=== PATIENT | female | born 1975 | race African-American/Black ===

== ENCOUNTER 2017-02-14 16:54 | Emergency (ER) | payer OTHER ==
[~2017-02-14] VITALS: Ht 162.6 cm; Wt 108.9 kg
--- NOTE | ~2017-02-14 | CR93 ---
[facility]. [facility] A Service of [facility] & [facility] [place] RADIOLOGY TEXT RESULTS PATIENT: SUNDAR GUTIÉRREZ LOCATION: SED : 79 UNIT #: [id number] AGE: [address]: DEVANTE BROWER SEX: F ORDER DR: [id number] [address] [address] [id number] E MR#: [id number] Acc #: [id number] NAME: SUNDAR GUTIÉRREZ : 1975 SEX: F STUDY DATE/TIME: 02/14/2017 17:36 UNIT: SED ROOM: STUDY DESCRIPTION: CR Elbow Min 3 Views Lt Attending Physician: Devante Brower Ordering Physician: Devante Brower Primary Care Physician: Garland Garner M.D. MEDICAL IMAGING REPORT This report is preliminary unless electronic signature is present. EXAM 3 views left elbow. DATE: 02/14/2017 HISTORY Left elbow pain after falling yesterday. FINDINGS AP and lateral examination of the elbow shows satisfactory articulation of the humerus with the proximal radius and ulna. There is no identifiable fracture, dislocation, joint effusion, or radiopaque foreign body in the soft tissues. IMPRESSION Normal elbow. Dictated by... Ness Alanis M.D. THIS IS AN ELECTRONICALLY VERIFIED REPORT Ness Alanis M.D. at 02/15/2017 9:55 AM VANIA/riana TD: 02/14/2017 22:01 JOB #: [id number] MEDICAL IMAGING REPORT Page 1 of 1
--- NOTE | ~2017-02-14 | CR172 ---
[facility] A Service of [facility] RADIOLOGY TEXT RESULTS PATIENT: SUNDAR GUTIÉRREZ LOCATION: SED : [birth year] UNIT #: [id number] AGE: [address]: DEVANTE BROWER SEX: F ORDER DR: [id number] [address] [address] [id number] E MR#: [id number] Acc #: [id number] NAME: SUNDAR GUTIÉRREZ : 1975 SEX: F STUDY DATE/TIME: 02/14/2017 17:36 UNIT: SED ROOM: STUDY DESCRIPTION: CR Knee 3 Views Lt Attending Physician: Devante Brower Ordering Physician: Devante Brower Primary Care Physician: Garland Garenr M.D. MEDICAL IMAGING REPORT This report is preliminary unless electronic signature is present. EXAM Three views left knee. DATE 02/14/2017 HISTORY Medial left knee pain after falling yesterday. COMPARISON None FINDINGS AP and lateral projection of the knee shows smooth articular anatomy without indication of fracture or dislocation at the major weight-bearing surface of the knee. There is no indication of radiopaque foreign body about the knee surface or joint effusion. IMPRESSION Normal 3 views of the left knee. Dictated by... Ness Alanis M.D. THIS IS AN ELECTRONICALLY VERIFIED REPORT Ness Alanis M.D. at 02/15/2017 9:55 AM [facility]/psc TD: 02/14/2017 21:59 JOB #: [id number] [facility] A Service [facility] RADIOLOGY TEXT RESULTS PATIENT: SUNDAR GUTIÉRREZ LOCATION: SED : [birth year] UNIT #: [id number] AGE: [address]: DEVANTE BROWER SEX: F ORDER DR: MEDICAL IMAGING REPORT Page 1 of 1
--- NOTE | ~2017-02-14 | CR281 ---
[facility] A Service [facility] RADIOLOGY TEXT RESULTS PATIENT: SUNDAR GUTIÉRREZ LOCATION: SED : 79 UNIT #: [id number] AGE: [address]: DEVANTE BROWER SEX: F ORDER DR: [id number] [address] [address] [id number] E MR#: [id number] Acc #: [id number] NAME: SUNDAR GUTIÉRREZ : 1975 SEX: F STUDY DATE/TIME: 02/14/2017 17:36 UNIT: SED ROOM: STUDY DESCRIPTION: CR Wrist Min 3 View Lt Attending Physician: Devante Brower Ordering Physician: Devante Brower Primary Care Physician: Garland Garner M.D. MEDICAL IMAGING REPORT This report is preliminary unless electronic signature is present. EXAM 3 views left wrist DATE: 02/14/2017 HISTORY Left wrist pain after falling yesterday. COMPARISON None. FINDINGS Wrist evaluation in multiple projections shows normal mineralization of the bony structures about the wrist and satisfactory articular relationship of the radius and ulna to the proximal carpal row and of the distal carpal segments to the metacarpal bases. There is no indication of fracture or dislocation, and no soft tissue radiopaque foreign body is present. No congenital defects are apparent. IMPRESSION Normal wrist. Dictated by... Ness Alanis M.D. THIS IS AN ELECTRONICALLY VERIFIED REPORT Ness Alanis M.D. at 02/15/2017 9:55 AM VANIA/riana TD: 02/14/2017 21:59 JOB #: [id number] [facility] A Service [facility] RADIOLOGY TEXT RESULTS PATIENT: SUNDAR GUTIÉRREZ LOCATION: SED : [birth year] UNIT #: [id number] AGE: [address]: DEVANTE BROWER SEX: F ORDER DR: MEDICAL IMAGING REPORT Page 1 of 1
[~2017-02-14 16:54] MED LIST: BACTRIM DS TABL1 TA1 PO; BENTYL20 MG PO; DICLOFENAC PO; NO MEDICATIONS; VOLTAREN75 MG PO
== END 2017-02-14 18:36 | disposition home or self-care (01) ==
LOC: SED 16:54
DX: S63.502A Unspecified sprain of left wrist, initial encounter (principal); S80.02XA Contusion of left knee, initial encounter; S50.02XA Contusion of left elbow, initial encounter; F17.210 Nicotine dependence, cigarettes, uncomplicated; Z88.8 Allergy status to other drugs, medicaments and biological substances; Z88.1 Allergy status to other antibiotic agents; Z91.040 Latex allergy status; Z91.041 Radiographic dye allergy status; W01.0XXA Fall on same level from slipping, tripping and stumbling without subsequent striking against object, initial encounter; Y92.511 Restaurant or cafe as the place of occurrence of the external cause
CPT/HCPCS: 29260; 29530; 73080; 73110; 73562; 99283

== ENCOUNTER 2017-03-03 12:47 | Emergency (ER) | payer OTHER ==
[~2017-03-03] VITALS: Ht 162.6 cm; Wt 108.9 kg
[2017-03-03 13:25] LABS: URINE SOURCE CLEAN CATCH
[2017-03-03 13:42] LABS: URINE APPEARANCE CLEAR; URINE BILIRUBIN NEG (NEG); URINE BLOOD TRACE (NEG); URINE COLOR YELLOW; URINE GLUCOSE NEG (NEG); URINE KETONE NEG (NEG); URINE LEUKOCYTE ESTERASE NEG (NEG); URINE NITRATE NEG (NEG); URINE PROTEIN NEG (NEG); URINE SPECIFIC GRAVITY 1.019 (1.003-1.035); URINE UROBILINOGEN 0.2 MG/DL (NEG)
[2017-03-03 13:46] LABS: U HYALINE CASTS AUWI 0-2 /[LPF]; URINE BACTERIA AUWI NEG (NEGATIVE); URINE SQUAMOUS EPITHELIAL CELL NONE SEEN /[HPF]; UWBCS1 AUWI 0-2 (0-5)
[2017-03-03 14:02] LABS: CULTURE INDICATED? NO
[2017-03-06 01:33] LABS: CHLAMYDIA TRACH Not Detected (Not Detected); N GONOR Not Detected (Not Detected)
== END 2017-03-03 15:45 | disposition home or self-care (01) ==
LOC: CED 12:47 → CFTX 12:47
PROVIDERS: Physician Assistant
DX: R30.0 Dysuria (principal); E78.00 Pure hypercholesterolemia, unspecified; F17.200 Nicotine dependence, unspecified, uncomplicated; Z90.710 Acquired absence of both cervix and uterus; Z91.040 Latex allergy status; Z91.041 Radiographic dye allergy status; Z88.8 Allergy status to other drugs, medicaments and biological substances
CPT/HCPCS: 81003; 87220; 87491; 87591; 87808; 87905; 99283